=== PATIENT | male | born 1935 | race Caucasian/White ===

== ENCOUNTER 2016-12-08 12:16 | Emergency (ER) | payer OTHER, BC, MEDICARE ==
[~2016-12-08] VITALS: Ht 170.2 cm; Wt 80.7 kg
[~2016-12-08 12:16] MED LIST: BENZONATATE200 M1 PO; FELODIPINE ER5 MG PO; LISINOPRIL40 M1 PO; METOPROLOL SUCC50 M2 PO; POLYTRIM O200 GTT/BO OPH; PROVENTIL HFA6.7 GM INH; SIMVASTATIN40 M1 PO; ZETIA10 M1 PO; ZITHROMAX250 M2 PO
[2016-12-08 12:43] LABS: ABSOLUTE BASOPHIL COUNT 0 /CUMM (0.0-0.2); ABSOLUTE EOSINOPHIL COUNT 0.2 /CUMM (0.0-0.7); ABSOLUTE LYMPH COUNT 1.4 /CUMM (1.2-3.4); ABSOLUTE MONOCYTE COUNT 0.5 /CUMM (0.10-0.60); BASOPHIL % 0.3 % (0.0-2.0); EOSINOPHIL % 3.6 % (0-5); GRANULOCYTE % 65.2 % (42.2-75.2); HEMATOCRIT 41.1 % (42-52); MEAN CORPUSCULAR HGB 29.5 PG (27.0-31.0); MEAN CORPUSCULAR HGB CONC 34.9 G/DL (33.0-37.0); MEAN CORPUSCULAR VOLUME 84.7 FL (80.0-94.0); MEAN PLATELET VOLUME 7.6 FL (7.4-10.4); PLATELET COUNT 153 /CUMM (130-400); RBC DISTRIBUTION WIDTH 14.3 % (11.5-14.5); RED BLOOD CELL CT 4.85 /CUMM (4.70-6.10); WHITE BLOOD CELL COUNT 6.2 /CUMM (4.8-10.8)
[2016-12-08 12:55] LABS: PT 11.6 SEC (9.4-12.5); PTT 33 SEC (25-37)
--- NOTE | 2016-12-08 12:57 | ED GI/GU/ABDOMINAL COMPLAINT ---
History of Present Illness General Chief Complaint: General Adult Stated Complaint: RECTAL BLEEDING Source: patient Exam Limitations: no limitations Vital Signs & Intake/Output Vital Signs & Intake/Output Vital Signs Date Time Temp Pulse Resp B/P Pulse O2 O2 Flow FiO2 Ox Delivery Rate 12/08 1414 97 12/08 1414 97.2 63 20 176/80 98 Room Air 12/08 1335 58 140/67 12/08 1231 98.0 70 14 181/93 97 Room Air ED Intake and Output 12/09 0000 12/08 1200 Intake Total Output Total Balance Patient 178 lb Weight Allergies Coded Allergies: erythromycin base (UNKNOWN A CHILD 01/09/16) Reconcile Medications Amlodipine Besylate 5 MG TABLET 1 TAB PO DAILY HEART (Reported) Aspirin (Aspirin*) 81 MG TAB.CHEW 1 TAB PO DAILY HEART HEALTH (Reported) Atorvastatin Calcium 80 MG TABLET 1 TAB PO DAILY CHOLESTEROL (Reported) Carvedilol 6.25 MG TABLET 1 TAB PO BID HEART (Reported) Clopidogrel Bisulfate (Clopidogrel) 75 MG TABLET 1 TAB PO DAILY BLOOD THINNER (Reported) Ezetimibe (Zetia) 10 MG TABLET 1 TAB PO DAILY CHOLESTEROL (Reported) Felodipine (Felodipine ER) 5 MG TAB.ER.24H 1 TAB PO DAILY BP (Reported) Lisinopril 40 MG TABLET 1 TAB PO DAILY BP (Reported) Metoprolol Succinate 50 MG TAB.ER.24H 1 TAB PO DAILY BP (Reported) Simvastatin (Simvastatin*) 40 MG TABLET 1 TAB PO QPM CHOLESTEROL (Reported) Tamsulosin HCl 0.4 MG CAP.ER.24H 1 CAP PO DAILY PROSTATE (Reported) Triage Note: 81 Y/O MALE C/O RECTAL BLEEDING SINCE YESTERDAY. PT STATES HE NOTICED RED WATER WHILE IN SHOWER; ALSO REPORTS BLOOD WITH BM THIS AM. STATES BLOOD IS BRIGHT RED. "FEELS FINE" OTHERWISE. PT ON PLAVIX AND ASA Triage Nurses Notes Reviewed? yes Onset: Abrupt Duration: day(s): (2) Timing: single episode today Quality/Severity: mild Location: RECTAL Radiation: no radiation Activities at Onset: none No Modifying Factors: none Associated Symptoms: CONSTIPATION HPI: 81 year old male with history of HTN, dyslipidemia presents to the ER from Dr. MARTINES office for reported blood from his rectum. He states yesterday while in the shower he noticed some bright red blood pouring down his leg. No clots. No abdominal or rectal pain. Thehn this morning after straining to have a bowel movement he noted some bright red blood on the tissue paper. No blood in lidya stool or black stool. Denies any abdominal pain today or rectal pain. No dizziness, lightheadedness, chest pain, shortness of breath. After his regular visit he was advised to come to the ED for evaluation. Last colonoscopy [address] Perkins. Past History Travel History Traveled to [place] past 21 day No Medical History Any Pertinent Medical History? 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 No Review of Systems Review of Systems Constitutional: Denies: chills, fever. EENTM: Reports: no symptoms. Respiratory: Denies: cough, short of breath, sputum production. Cardiovascular: Denies: chest pain. GI: Reports: constipation. Denies: abdominal pain, diarrhea, nausea, vomiting. Genitourinary: Denies: discharge, dysuria. Musculoskeletal: Reports: no symptoms. Skin: Reports: no symptoms. Neurological/Psychological: Reports: no symptoms. Hematologic/Endocrine: Reports: bleeding. Denies: bruising, polyuria, polydipsia. Immunologic/Allergic: Denies: splenectomy. All Other Systems: Reviewed and Negative Physical Exam Physical Exam General Appearance: well developed/nourished, alert, awake Head: atraumatic, normal appearance Eyes: Bilateral: normal appearance, PERRL, EOMI. Ears, Nose, Throat, Mouth: hearing grossly normal, moist mucous membrane Neck: normal inspection, supple, full range of motion Respiratory: normal breath sounds, chest non-tender, no respiratory distress Cardiovascular: regular rate/rhythm Peripheral Pulses: 2+ radial (R), 2+ radial (L) Gastrointestinal: normal bowel sounds, soft, non-tender Rectal: dried blood at rectum deflated external hemorrhoid brown/green stool on GEENA Extremities: normal range of motion Neurologic/Psych: no motor/sensory deficits, awake, alert, oriented x 3 Skin: intact, normal color, warm/dry Core Measures ACS in differential dx? No Severe Sepsis Present: No Septic Shock Present: No Progress Differential Diagnosis: hemorrhoids, ischemic bowel, AVM, DIVERTICULOSIS, ISCHEMIC COLITIS, MALIGNANCY Plan of Care: Orders Procedure Date/time Status MISTAKE 12/08 1313 Active TROPONIN LEVEL 12/08 1231 Complete PARTIAL THROMBOPLASTIN TIME 12/08 1231 Complete PROTHROMBIN TIME 12/08 1231 Complete COMPREHENSIVE METABOLIC PANEL 12/08 1231 Complete CBC WITHOUT DIFFERENTIAL 12/08 1231 Complete TYPE & SCREEN (NOT X-MATCH) 12/08 1231 Complete Laboratory Tests 12/08/16 1234: Anion Gap 12, Estimated GFR 42 L, BUN/Creatinine Ratio 20.0, Glucose 118 H, Calcium 9.4, Total Bilirubin 0.9, AST 25, ALT 43, Alkaline Phosphatase 97, Troponin I < 0.01, Total Protein 6.7, Albumin 4.1, Globulin 2.6, Albumin/ Globulin Ratio 1.6, PT 11.6, INR 1.11, APTT 33, CBC w Diff NO MAN DIFF REQ, RBC 4.85, MCV 84.7, MCH 29.5, RDW 14.3, MPV 7.6, Gran % 65.2, Lymphocytes % 23.3, Monocytes % 7.6, Eosinophils % 3.6, Basophils % 0.3, Absolute Granulocytes 4.0, Absolute Lymphocytes 1.4, Absolute Monocytes 0.5, Absolute Eosinophils 0.2, Absolute Basophils 0, PUBS MCHC 34.9 STOOL NORMAL IN COLOR, DREID BLOOD AT RECTUM. NO BLOODY OUTPUT TODAY. NO ABDOMINAL OR RECTAL PAIN. H/H WNL. ORTHOSTATICS NEGATIVE. D/W DR MISTI PERKINS. AVAILABLE FOR FOLLOW UP IN THE OFFICE. PATIENT ADVISED TO RETURN IMMEDIATELY FOR ANY WORSENING BLEEDING. (ASHLEY HERBERT,DARYL) Initial ED EKG: normal intervals Departure Departure Time of Disposition: 1407 Disposition: HOME OR SELF CARE Condition: Stable Clinical Impression Primary Impression: Rectal bleeding Referrals: MAI HERBERT,VERNON Sandoval (PCP/Family) LANI HERBERT,RITESH Lopez Additional Instructions: Follow a clear liquid diet for the next 24 hours and is feeling better advance as tolerated. Follow-up with Dr. Perkins in the office. Take Colace twice a day [id number] as needed for constipation. If he develops any abdominal pain or repeat episodes of significant bleeding please return immediately to the ER. Departure Forms: Customer Survey General Discharge Information
[2016-12-08] MEDS ORDERED: ASPIRIN81 M4 PO (14:01)
[2016-12-08] MEDS ORDERED: ATORVASTATIN CA80 M1 PO (14:01)
[2016-12-08] MEDS ORDERED: CARVEDILOL6.25 M1 PO (14:01)
[2016-12-08] MEDS ORDERED: AMLODIPINE BESYL5 M1 PO (14:02)
[2016-12-08] MEDS ORDERED: CLOPIDOGREL75 M1 PO (14:02)
[2016-12-08] MEDS ORDERED: TAMSULOSIN HCL0.4 M1 PO (14:02)
[2016-12-08 14:14] VITALS: BP 176/80
== END 2016-12-08 14:17 ==
LOC: ERH 12:16
PROVIDERS: Emergency Medicine
DX: K62.5 Hemorrhage of anus and rectum (principal)